=== PATIENT | male | born 1935 | race Hispanic/Latino ===

== ENCOUNTER → 2017-09-03 | Outpatient (CLI) | payer OTHER, MEDICARE ==
[~2017-09-03] MED LIST: CLOP75TA32 PO; ENAL5TAB PO; EZET10 PO; LEVO25TA54 PO; LOVA40TA2 PO; METF10004 PO; PANT40TA25 PO
== END | disposition home or self-care (01) ==
LOC: SHCH 09:07
PROVIDERS: ATTEND Internal Medicine Cardiovascular Disease
DX: I25.10 Atherosclerotic heart disease of native coronary artery without angina pectoris (principal); I65.23 Occlusion and stenosis of bilateral carotid arteries
CPT/HCPCS: 93880

== ENCOUNTER → 2018-09-24 | Outpatient (CLI) | payer OTHER, MEDICARE ==
[~2018-09-24] MED LIST changes: +METF-446 PO; -METF10004 PO
== END | disposition home or self-care (01) ==
LOC: SHCH 09:55
PROVIDERS: ATTEND Internal Medicine Cardiovascular Disease
DX: I25.10 Atherosclerotic heart disease of native coronary artery without angina pectoris (principal)
CPT/HCPCS: 93880

== ENCOUNTER → 2019-06-02 | Outpatient (CLI) | payer OTHER, MEDICARE ==
[~2019-06-02] MED LIST changes: -EZET10 PO; +EZET10TA13 PO
== END | disposition home or self-care (01) ==
LOC: SHCH 14:06
PROVIDERS: ATTEND Internal Medicine Cardiovascular Disease
DX: I65.23 Occlusion and stenosis of bilateral carotid arteries (principal); I25.10 Atherosclerotic heart disease of native coronary artery without angina pectoris
CPT/HCPCS: 93880

== ENCOUNTER → 2020-09-06 | Outpatient (CLI) | payer OTHER, MEDICARE ==
[~2020-09-06] MED LIST changes: -ENAL5TAB PO; +ENAL5TAB17 PO; -PANT40TA25 PO; +PANT40TA54 PO
== END | disposition home or self-care (01) ==
LOC: SHCH 15:09
PROVIDERS: ATTEND Internal Medicine Cardiovascular Disease
DX: I65.23 Occlusion and stenosis of bilateral carotid arteries (principal)
CPT/HCPCS: 93880

== ENCOUNTER 2022-01-19 13:42 | Emergency (ER) | payer OTHER, MEDICARE ==
[~2022-01-19] VITALS: Ht 157.5 cm; Wt 63.5 kg
[2022-01-19 15:20] LABS: APPEARANCE,URINE CLEAR (CLEAR); BILIRUBIN,URINE NEGATIVE (NEGATIVE); COLOR,URINE LIGHT-YELLOW (YELLOW); GLUCOSE, URINE (UA) NEGATIVE (NEGATIVE); KETONES,URINE 10 mg/dL (NEGATIVE); LEUKOCYTE ESTERASE ,URINE NEGATIVE Leu/uL (NEGATIVE); NITRATE,URINE NEGATIVE (NEGATIVE); OCCULT BLOOD,URINE SMALL (NEGATIVE); PROTEIN,URINE NEGATIVE (NEGATIVE); UROBILINOGEN,URINE 0.2 mg/dL (0.2-1.0)
[2022-01-19 15:27] LABS: WBC,URINE 0-1 /HPF (0-1)
[2022-01-19] MEDS: HYDRALAZINE 20MG/ML VIAL IV ONE ×3 (16:24→16:58)
[2022-01-19] MEDS: HYDRALAZINE 20MG/ML VIAL ONE ×3 (16:28→16:59)
[2022-01-19] MEDS ORDERED: IBUP-1493 PO (17:05)
[2022-01-19] MEDS ORDERED: CEPH500B PO (17:05)
[2022-01-19] MEDS ORDERED: TETANUS/DIPHTHERIA TOXOID [ADULT] 0.5 ML VIAL IM SCH (17:30)
[2022-01-19 17:55] VITALS: BP 168/83
[2022-01-19] MEDS ORDERED: ACETAMINOPHEN 325 MG TAB PO ONE (18:00)
== END 2022-01-19 18:09 | disposition home or self-care (01) ==
LOC: EDH 13:42
DX: S82.001A Unspecified fracture of right patella, initial encounter for closed fracture (principal); S61.217A Laceration without foreign body of left little finger without damage to nail, initial encounter; S61.412A Laceration without foreign body of left hand, initial encounter; S80.02XA Contusion of left knee, initial encounter; E11.9 Type 2 diabetes mellitus without complications; E78.49 Other hyperlipidemia; Z79.1 Long term (current) use of non-steroidal anti-inflammatories (NSAID); Z79.84 Long term (current) use of oral hypoglycemic drugs; W18.39XA Other fall on same level, initial encounter; Y93.89 Activity, other specified; Y92.89 Other specified places as the place of occurrence of the external cause; Y99.8 Other external cause status
CPT/HCPCS: 99285; 96374; 29505; 70450; 71045; 81001; 90714; 73560; 73130; 90471; 12004; J0360

== ENCOUNTER → 2022-06-16 | Outpatient (CLI) | payer OTHER, MEDICARE ==
[~2022-06-16] MED LIST changes: +CEPH500B PO; +ENAL-87 PO; -ENAL5TAB17 PO; +IBUP-1493 PO
== END | disposition home or self-care (01) ==
LOC: SHCH 11:01
PROVIDERS: ATTEND Internal Medicine Cardiovascular Disease
DX: I65.23 Occlusion and stenosis of bilateral carotid arteries (principal)
CPT/HCPCS: 93880

== ENCOUNTER → 2022-08-14 | Outpatient (CLI) | payer OTHER, MEDICARE | END | disposition home or self-care (01) | LOC: SHCH 13:56 | PROVIDERS: ATTEND Internal Medicine Cardiovascular Disease | DX: G45.1 Carotid artery syndrome (hemispheric) (principal) | CPT/HCPCS: 93880 ==

== ENCOUNTER → 2023-01-21 | Outpatient (CLI) | payer OTHER, MEDICARE ==
[~2023-01-21] MED LIST changes: -EZET10TA13 PO; +EZET10TA81 PO
== END | disposition home or self-care (01) ==
LOC: RAH 12:34
PROVIDERS: ATTEND Internal Medicine
DX: S83.242A Other tear of medial meniscus, current injury, left knee, initial encounter (principal); G89.29 Other chronic pain; M25.562 Pain in left knee; M25.462 Effusion, left knee; X58.XXXA Exposure to other specified factors, initial encounter; Y93.89 Activity, other specified; Y92.89 Other specified places as the place of occurrence of the external cause; Y99.8 Other external cause status
CPT/HCPCS: 73721

== ENCOUNTER → 2024-04-11 | Emergency (ER) | payer MEDICARE, OTHER ==
[~2024-04-11] VITALS: Ht 157.5 cm; Wt 63.5 kg
[2024-04-11 17:12] VITALS: BP 173/82; PULSE 91; RESP 16; TEMP 97.6
== END ==
LOC: EDH 16:54
DX: M25.562 Pain in left knee (principal); Z53.21 Procedure and treatment not carried out due to patient leaving prior to being seen by health care provider